=== PATIENT | male | born 1955 | race Caucasian/White ===

== ENCOUNTER → 2016-07-27 | Outpatient (CLI) | payer BC ==
[2016-07-27 15:29] LABS: Basophils % (A) 0 %; CH 29.6; CHCM 34.4; Eosinophils # (A) 0.1 k/uL (0-0.7); Eosinophils % (A) 1 %; HCT 43.2 % (39.0-53.0); HDW 3.18; HGB 13.8 gm/dL (13.0-17.5); Luc # (Auto) 0.14; Luc % (Auto) 2; Lymphocytes # (A) 0.8 k/uL (1.0-4.8); Lymphocytes % (A) 13 %; MCH 27.6 pg (25.0-35.0); MCV 86.4 fL (80.0-100.0); Mean Platelet Volume 6.9; Monocytes # (A) 0.4 k/uL (0-1.0); Monocytes % (A) 6 %; Neutrophils # (A) 4.8 k/uL (1.3-7.7); Neutrophils % (A) 77 %; RDW 15.3 % (11.5-15.5); WBC 6.1 k/uL (3.8-10.6); WBC (Perox) 6.14
[2016-07-27 15:39] LABS: ALT 51 U/L (21-72); AST 52 U/L (17-59); Alkaline Phosphatase 89 U/L (38-126); Anion Gap 12 mmol/L; Blood Urea Nitrogen 17 mg/dL (9-20); Calcium 9.3 mg/dL (8.4-10.2); Carbon Dioxide 27 mmol/L (22-30); Chloride 104 mmol/L (98-107); Creatine Kinase 212 U/L (55-170); Glucose 111 mg/dL (74-99); Magnesium 2.1 mg/dL (1.6-2.3); Non-African American GFR(MDRD) 59 (>60 ml/min/1.73 sqM); Potassium 4.7 mmol/L (3.5-5.1); Sodium 143 mmol/L (137-145); Total Bilirubin 0.6 mg/dL (0.2-1.3); Total Protein 6.9 g/dL (6.3-8.2)
--- NOTE | 2016-07-27 16:29 | XR ---
EXAMINATION TYPE: XR sinus DATE OF EXAM: 07/27/2016 3:10 PM COMPARISON: NONE HISTORY: 60-year-old male chronic sinusitis TECHNIQUE: 4 views FINDINGS: There is slight undulation of the nasal septum. Asymmetric increased density involving the right maxi llary frontal, and right ethmoid sinuses. Sphenoid sinuses appear pneumatized. No air-fluid level see n on the Smith view. IMPRESSION: Findings suggest asymmetric chronic sinus disease involving the right maxillary, frontal, and ethmoid sinuses.
== END ==
LOC: RADXRMAIN 14:37
PROVIDERS: ATTEND Internal Medicine
DX: J32.9 Chronic sinusitis, unspecified (principal); I10 Essential (primary) hypertension; I50.9 Heart failure, unspecified
CPT/HCPCS: 70220; 80053; 82550; 83735; 83880; 85025

== ENCOUNTER 2017-12-16 09:01 | Observation (INO) | payer BC ==
[2017-12-16] MEDS ORDERED: ACETAMINOPHEN TAB 325 MG TAB PO PRN (11:58)
[2017-12-16] MEDS ORDERED: NALOXONE 0.4 MG/ML 1 ML VIAL IV PRN (11:58)
[2017-12-16] MEDS ORDERED: MELATONIN 3 MG TABLET PO PRN (11:58)
[2017-12-16] MEDS ORDERED: ONDANSETRON 4 MG/2 ML VIAL IVP PRN (11:58)
[2017-12-16 12:14] LABS: HCT 40.8 % (39.0-53.0); HGB 13.9 gm/dL (13.0-17.5); MCH 28.6 pg (25.0-35.0); Mean Platelet Volume 7.8; Platelet Count 269 k/uL (150-450); RBC 4.86 m/uL (4.30-5.90); RDW 14.6 % (11.5-15.5)
[2017-12-16 12:45] LABS: Albumin 3.1 g/dL (3.5-5.0); Calcium 8.3 mg/dL (8.4-10.2); Magnesium 2.7 mg/dL (1.6-2.3); Phosphorus 4.3 mg/dL (2.5-4.5); Potassium 4.3 mmol/L (3.5-5.1); Total Bilirubin 0.4 mg/dL (0.2-1.3); Total Protein 5.4 g/dL (6.3-8.2)
[2017-12-16] MEDS ORDERED: SODIUM CHLORIDE 0.9% 1,000 ML IV ONE (14:35)
[2017-12-16] MEDS ORDERED: CALCIUM CARBONATE 500 MG CHEWABLE PO PRN (14:38)
[2017-12-16] MEDS ORDERED: HYDROcodone/APAP 5-325MG 1 EACH TAB PO PRN (14:38)
--- NOTE | 2017-12-16 15:28 | P.HPIM ---
History of Present Illness H&P Date: 12/16/17 Chief Complaint: Weakness Patient is a 62-year-old male to past medical history of hypertension , dyslipidemia, arthritis, GERD, A. fib, obstructive sleep apnea, and sinusitis who presented as a direct admission from Dr. Linn's office. Patient seen and examined at bedside. He states that 6 days ago he started having diarrhea. It increased in frequency over the next 3 days. It was associated with decreased appetite. Approximately 3 days ago he started having some vomiting. He then became lightheaded. He has felt some generalized weakness. After all the vomiting he felt as though his abdominal muscles were sore but no discrete abdominal pain. He also had one episode where he got so weak it is lower to his knees. 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 He denies any fevers or chills. He states that he was having food from the [employer] prior to this illness. He also states that 3 other members of his family came down with the illness but it only lasted 1 day. He was given Lomotil and Zofran by Dr. Linn and has not had a bowel movement since 6 PM last night. He denies any shortness of breath, wheezing, chest pain, palpitations, dysuria, or strokelike symptoms. He does have a history of congestive heart failure and last had an echocardiogram done approximately one year ago with Dr. Arias. Review of Systems Pertinent positives and negatives as discussed in HPI, a complete review of systems was performed and all other systems are negative. Past Medical History Past Medical History: Atrial Fibrillation, GERD/Reflux, Hyperlipidemia, Hypertension, Osteoarthritis (OA), Sleep Apnea/CPAP/BIPAP Additional Past Medical History / Comment(s): Chronic sinusitis, Vtach, FARZANEH but uses no device, arthritis. Congestive heart failure History of Any Multi-Drug Resistant Organisms: None Reported Past Surgical History: Hernia Repair, Orthopedic Surgery Additional Past Surgical History / Comment(s): R ESS with bx and removal of sinonasal mass, R inguinal hernia repair, achilles tendon repair left foot, abdominal surgery age 3 weeks old, colonoscopy in 2009-normal. Past Anesthesia/Blood Transfusion Reactions: No Reported Reaction Past Psychological History: No Psychological Hx Reported Additional Psychological History / Comment(s): Pt resides with his spouse of 40 yrs. He is independent. He has [facility] [place]. Smoking Status: Never smoker Past Alcohol Use History: None Reported Past Drug Use History: None Reported - Past Family History Father Family Medical History: Dementia, Hypertension, Osteoarthritis (OA) Additional Family Medical History / Comment(s): Father at the age of 87yrs. Mother Family Medical History: Cancer Additional Family Medical History / Comment(s): Mother said she had "lymphatic" cancer. She at the age of 78yrs. Medications and Allergies Home Medications Medication Instructions Recorded Confirmed Type Ferrous Sulfate [Feosol] 325 mg PO DAILY 04/23/15 12/16/17 History Indomethacin [Indocin] 50 mg PO TID 04/23/15 12/16/17 History Lansoprazole [Prevacid] 30 mg PO BID 04/23/15 12/16/17 History Finasteride [Propecia] 1 mg PO DAILY 04/24/15 12/16/17 History amLODIPine BESYLATE/BENAZEPRIL 1 cap PO DAILY 04/24/15 12/16/17 History [Lotrel 10-40 mg Capsule] Diphenox-Atrop 2.5-0.025 mg 1 tab PO QID PRN 12/16/17 12/16/17 History [Lomotil] Furosemide [Lasix] 20 mg PO DAILY 12/16/17 12/16/17 History Ondansetron HCl [Zofran] 4 mg PO QID PRN 12/16/17 12/16/17 History predniSONE See Taper PO DAILY 12/16/17 12/16/17 History Allergies Allergy/AdvReac Type Severity Reaction Status Date / Time ibuprofen Allergy Swelling-face Verified 12/16/17 11:26 and throat,hives Penicillins Allergy Unknown Verified 12/16/17 11:26 Childhood Physical Exam Osteopathic Statement: *. No significant issues noted on an osteopathic structural exam other than those noted in the History and Physical/Consult. Vitals: Vital Signs Temp Pulse Resp BP Pulse Ox 12/16/17 11:07 97.6 F 68 16 99/56 97 Intake and Output 12/15/17 12/16/17 12/16/17 22:59 06:59 14:59 Other: Weight 78.5 kg General: ill Appearing, mild distress, appears at stated age Derm: warm, dry Head: atraumatic, normocephalic, symmetric Eyes: EOMI, no lid lag, anicteric sclera Mouth: no lip lesion, mucous membranes dry Cardiovascular: S1 and S2 tachycardic, no murmur, positive posterior tibial pulse bilateral, Lungs: CTA bilateral, no rhonchi, no rales , no accessory muscle use Abdominal: soft, nontender to palpation, no guarding, no appreciable organomegaly Ext: no gross muscle atrophy, no edema, no contractures Neuro: CN II-XI grossly intact, no focal neuro deficits Psych: Alert, oriented, appropriate affect Results CBC & Chem 7: 12/16/17 12:01 12/16/17 12:01 Labs: Abnormal Lab Results - Last 24 Hours (Table) 12/16/17 Range/Units 12:01 BUN 58 H (9-20) mg/dL Creatinine 3.29 H (0.66-1.25) mg/dL Glucose 122 H (74-99) mg/dL Calcium 8.3 L (8.4-10.2) mg/dL Magnesium 2.7 H (1.6-2.3) mg/dL Total Protein 5.4 L (6.3-8.2) g/dL Albumin 3.1 L (3.5-5.0) g/dL Thrombosis Risk Factor Assmnt - DVT/VTE Prophylaxis DVT/VTE Prophylaxis: Low risk, early ambulation encouraged - Choose All That Apply Any of the Below Risk Factors Present?: Yes Each Risk Factor Represents 2 Points: Age 61-74 years Other congenital or acquired thrombophilia - If yes, enter type in comment: No Thrombosis Risk Factor Assessment Total Risk Factor Score: 2 Thrombosis Risk Factor Assessment Level: Low Risk Assessment and Plan Assessment: Gastroenteritis -Continue with Zofran and as needed Lomotil Acute kidney injury likely secondary to dehydration -IV fluids -Avoid nephrotoxic agents -Renal ultrasound -Repeat basic metabolic profile in a.m. -Hold home lisinopril, indomethacin, Lasix Hypertension, controlled -Lisinopril/amlodipine on hold, Lasix on hold -Follow blood pressures Compensated congestive heart failure Unknown baseline ejection fraction -Lasix and lisinopril on hold -Not chronically on beta jodie -Monitor fluid status closely Arthritis -Indomethacin on hold, patient nervous disease taken it since age of 20 -Supplement with prednisone and [place] Chronic: Paroxysmal atrial fibrillation currently in normal sinus rhythm GERD Sinusitis Obstructive sleep apnea not chronically on medications Dyslipidemia The patient is placed in observation with an anticipated less than 2 per night stay for evaluation of acute kidney injury and gastroenteritis. Surrogate decision-maker: , pat CODE STATUS: Full DVT prophylaxis: Low risk Discussed with: Yecenia Garces CREDIT MANAGER, patient, , nurse Anticipated discharge date: in AM Anticipated discharge place: Home A total of 35 minutes was spent on the care of this complex patient more than 50 % of the time was spent in counseling and care coordination.
--- NOTE | 2017-12-16 15:39 | US ---
EXAMINATION TYPE: US renals and bladder DATE OF EXAM: 12/16/2017 COMPARISON: NONE CLINICAL HISTORY: JIM. EXAM MEASUREMENTS: Right Kidney: 9.9 x 4.0 x 5.0 cm Left Kidney: 10.5 x 5.1 x 4.3 cm Right Kidney: No hydronephrosis or masses seen. No nephrolithiasis. Prominent column of [place] is inc identally noted. Cortical medullary differentiation is maintained. Left Kidney: No hydronephrosis or masses seen. No nephrolithiasis. Cortical medullary differentiation is maintained. Bladder: not fully distended There is no evidence for hydronephrosis at this point in time. No nephrolithiasis is seen. No nahid s are identified. The urinary bladder is anechoic. Bilateral ureteral jets are seen. IMPRESSION: No hydronephrosis or nephrolithiasis. No sonographic sequela of medical renal disease.
[2017-12-16] MEDS: SODIUM CHLORIDE 0.9% 1,000 ML IV SCH (15:53)
[2017-12-16] MEDS ORDERED: NON-FORMULARY DRUG (Lansoprazole [Prevacid] 30 MG) PO SCH (21:00)
[2017-12-16] MEDS: DIPHENOX-ATROP 2.5-0.025 MG 1 EACH TAB PO PRN (23:08)
[2017-12-17] MEDS: SODIUM CHLORIDE 0.9% 1,000 ML IV SCH ×2 (02:00→07:25)
[2017-12-17] MEDS: DIPHENOX-ATROP 2.5-0.025 MG 1 EACH TAB PO PRN (04:10)
[2017-12-17 06:48] VITALS: BP 106/62; PULSE 76; RESP 18; TEMP 98
[2017-12-17 07:20] LABS: Calcium 8.1 mg/dL (8.4-10.2); Potassium 4.2 mmol/L (3.5-5.1)
[2017-12-17] MEDS ORDERED: PANTOPRAZOLE 40 MG TABLET PO SCH (07:30)
[2017-12-17] MEDS ORDERED: FINASTERIDE 1 MG PO SCH (09:00)
[2017-12-17] MEDS ORDERED: predniSONE 20 MG TAB PO SCH (09:00)
[2017-12-17] MEDS ORDERED: FERROUS SULFATE 325 MG TAB PO SCH (09:00)
--- NOTE | 2017-12-17 15:44 | P.DS ---
Providers Date of admission: 12/16/17 10:55 Expected date of discharge: 12/17/17 Attending physician: Lisy Hebert DO Primary care physician: Manuel Linn Hospital Course: Discharge Diagnosis: Gastroenteritis Acute kidney injury, due to dehydration Compensated diastolic congestive heart failure Arthritis Paroxysmal atrial fibrillation Obstructive sleep apnea not currently on CPAP Hospital Course: Patient is a 62-year-old male to past medical history of hypertension , dyslipidemia, arthritis, GERD, A. fib, obstructive sleep apnea, and sinusitis who presented as a direct admission from Dr. Linn's office. He was found to have gastroenteritis that was likely secondary to food borne illnesses as 3 family members had milder cases and it occurred after eating a fair food. He was also found to have acute kidney injury. He is admitted for IV fluid resuscitation. He had already been started on Lomotil and his diarrhea had slowed. His lisinopril, Indocin, and Lasix were held. He was given 1 L IV fluid bolus and started on IV fluids at 100's per hour. By the next morning he had a rapid improvement in his kidney function and his creatinine was down to 1.81. He was determined stable for discharge home. He was instructed to return should his diarrhea worsened, he has increased fever, or no blood in his stools. There did not appear to be an indication for antibiotic at this point in time with a normal white blood cell count, and no fevers, no blood in his stool. He was given written and verbal instructions to resume his Lotrel and , Lasix on 12/20, and Indocin on 12/22. In order to compensate for his arthritis pain he was given a short dose of steroids. He was also given a prescription for Canby. I have asked him to get a repeat visit metabolic profile on Tuesday or Tuesday of next week with results to the Dr. Linn. Patient seen and examined at bedside. Only 3 episodes of diarrhea overnight. Feeling well and weakness is resolved. Up and ambulating the halls. No shortness of breath. No chest pain. Vital signs reviewed and stable. General: non toxic, no distress, appears at stated age Derm: warm, dry Head: atraumatic, normocephalic, symmetric Eyes: EOMI, no lid lag, anicteric sclera Mouth: no lip lesion, mucus membranes moist Cardiovascular: S1S2 reg, no murmur, positive posterior tibial pulse bilateral, Lungs: CTA bilateral, no rhonchi, no rales , no accessory muscle use Abdominal: soft, nontender to palpation, no guarding, no appreciable organomegaly Ext: no gross muscle atrophy, no edema, no contractures Neuro: CN II-XI grossly intact, no focal neuro deficits Psych: Alert, oriented, appropriate affect A total of 20 minutes of time were spent preparing this complex discharge summary . On discharge, the patient has been prescribed Canby for the treatment of acute pain. They have been provided a by day supply and MAPS was checked on 12/17/17. I have counseled them on the risk of opiate medications including addiction and overdose. We also discussed that mixing opiate medications with benzodiazepines , alcohol, muscle relaxers, and other drugs that depress the central nervous system can lead to serious health risks including overdose, , and disability. I informed them that it is a felony to illegally deliver, sell, or share a controlled substance. I have instructed them that unused opiates can be disposed of at a drug takeback location, which includes the [facility] and the [facility]. The Opioid start talking form has been signed. I have referred them back to their primary care physician for follow-up care. Patient Condition at Discharge: Stable Plan - Discharge Summary Discharge Rx Participant: No New Discharge Prescriptions: New HYDROcodone/APAP 5-325MG [Canby 5-325] 1 each PO Q6HR PRN #20 tab PRN Reason: Pain predniSONE 20 mg PO DAILY #5 tab Continue Ferrous Sulfate [Iron (65 MG Elemental)] 325 mg PO DAILY Indomethacin [Indocin] 50 mg PO TID Lansoprazole [Prevacid] 30 mg PO BID amLODIPine BESYLATE/BENAZEPRIL [Lotrel 10-40 mg Capsule] 1 cap PO DAILY Finasteride [Propecia] 1 mg PO DAILY Ondansetron HCl [Zofran] 4 mg PO QID PRN PRN Reason: Nausea Diphenox-Atrop 2.5-0.025 mg [Lomotil] 1 tab PO QID PRN PRN Reason: Diarrhea Furosemide [Lasix] 20 mg PO DAILY Discontinued predniSONE See Taper PO DAILY Discharge Medication List Ferrous Sulfate [Iron (65 MG Elemental)] 325 mg PO DAILY 04/23/15 [History] Indomethacin [Indocin] 50 mg PO TID 04/23/15 [History] Lansoprazole [Prevacid] 30 mg PO BID 04/23/15 [History] Finasteride [Propecia] 1 mg PO DAILY 04/24/15 [History] amLODIPine BESYLATE/BENAZEPRIL [Lotrel 10-40 mg Capsule] 1 cap PO DAILY [History] Diphenox-Atrop 2.5-0.025 mg [Lomotil] 1 tab PO QID PRN 12/16/17 [History] Furosemide [Lasix] 20 mg PO DAILY 12/16/17 [History] Ondansetron HCl [Zofran] 4 mg PO QID PRN 12/16/17 [History] HYDROcodone/APAP 5-325MG [Canby 5-325] 1 each PO Q6HR PRN #20 tab 12/17/17 [Rx] predniSONE 20 mg PO DAILY #5 tab 12/17/17 [Rx] Follow up Appointment(s)/Referral(s): Manuel Linn MD [Primary Care Provider] - 1-2 Days (Patient to call and schedule follow-up appointment on Tuesday, office is currently closed) Ambulatory/Diagnostic Orders: Basic Metabolic Panel [LAB.AMB] Location: None Selected Patient Instructions/Handouts: Hydrocodone/Acetaminophen (By mouth), Prednisone (By mouth), Probiotic (By mouth), Dehydration (DC), Acute Nausea and Vomiting (DC), Acute Diarrhea (GEN) Activity/Diet/Wound Care/Special Instructions: Heart healthy diet Activity as tolerated Take over the counter probiotic (Lactobacillus) twice daily for 7 days Resume Lotrel on 12/19 Resume lasix on 12/20 Resume Indocin on 12/22 Seek medical care if diarrhea worsens Discharge Disposition: HOME SELF-CARE
== END 2017-12-17 10:05 | disposition home or self-care (01) ==
LOC: INTOOBSV 10:55 → 5MS5E 10:55
PROVIDERS: ADMIT Internal Medicine; ATTEND Internal Medicine
DX: K52.9 Noninfective gastroenteritis and colitis, unspecified (principal); N17.9 Acute kidney failure, unspecified; E86.0 Dehydration; I11.0 Hypertensive heart disease with heart failure; I50.32 Chronic diastolic (congestive) heart failure; M19.90 Unspecified osteoarthritis, unspecified site; J32.9 Chronic sinusitis, unspecified; K21.9 Gastro-esophageal reflux disease without esophagitis; I48.0 Paroxysmal atrial fibrillation; I47.2 Ventricular tachycardia; G47.33 Obstructive sleep apnea (adult) (pediatric); E78.5 Hyperlipidemia, unspecified; Z99.89 Dependence on other enabling machines and devices; F40.240 Claustrophobia; Z79.1 Long term (current) use of non-steroidal anti-inflammatories (NSAID); Z79.52 Long term (current) use of systemic steroids; Z79.899 Other long term (current) drug therapy; Z88.0 Allergy status to penicillin; Z88.6 Allergy status to analgesic agent; Z80.7 Family history of other malignant neoplasms of lymphoid, hematopoietic and related tissues; Z82.49 Family history of ischemic heart disease and other diseases of the circulatory system; Z81.8 Family history of other mental and behavioral disorders; Z82.61 Family history of arthritis
CPT/HCPCS: 80053; 80048; 83735; 84100; 85027; 87086; 87077; 87186; 76770; G0379; G0378 ×3; J7512

== ENCOUNTER → 2020-11-28 | Outpatient (CLI) | payer BC ==
--- NOTE | 2020-11-28 12:52 | XR ---
EXAMINATION TYPE: XR chest 2V DATE OF EXAM: 11/28/2020 COMPARISON: NONE HISTORY: Chest pain TECHNIQUE: Frontal and lateral views of the chest are obtained. FINDINGS: There is no focal air space opacity, pleural effusion, or pneumothorax seen. The cardiac silhouette size is within normal limits. The osseous structures are intact. IMPRESSION: No acute cardiopulmonary process.
--- NOTE | 2020-12-01 08:43 | EST ---
EXERCISE STRESS AGE: 65 SEX: M HT: 6'3" WT: 200 lbs. PROTOCOL: Chris STAGE: 3 DURATION OF EXERCISE: 9:00 HEART RATE REST: 85 BLOOD PRESSURE REST: 146/73 MAXIMUM HEART RATE ACHIEVED: 127 MAXIMUM BLOOD PRESSURE: 193/73 85% MPHR: 133 100% MPHR: 156 METS: 10.5 INDICATIONS: Chest pain CLINICAL INFORMATION: Baseline EKG shows sinus rhythm with left bundle branch block. The patient exercised on Chris protocol for a total of 8.5 minutes, achieving 9.5 METS, 79% of predicted maximal heart rate without chest pain or diagnostic ST-segment depression. CONCLUSIONS: 1. Good exercise tolerance. 2. Inconclusive EKG part of the stress test due to left bundle branch block inability to obtain target heart rate. 3. Cardiolite portion of the stress test will be reported separately. MMODL / IJN: [id number] /
--- NOTE | 2020-12-01 10:52 | NM ---
EXAMINATION TYPE: NM stress cardiolite complete DATE OF EXAM: 11/30/2020 COMPARISON: NONE HISTORY: 65-year-old male with chest pain TECHNIQUE: After the intravenous administration of 9.7 mCi Tc 99m Sestamibi - Rest images obtained 4 5 minutes post injection. The patient exercised using a SO protocol and 1 minute prior to peak e xercise was injected with 25.8 mCi Tc 99m Sestamibi - Stress images obtained 25 minutes post injectio n. FINDINGS: Targeted heart rate (133 bpm). Maximum heart rate of 127 bpm was achieved. Review of stress and rest SPECT images demonstrates apical reversibility. Some additional reversibility noted along the septal wall. Findings are corroborated on the polar maps. Fixed decreased perfusion along the inferior wall likely diaphragmatic attenuation artifact. Gated analysis shows some generalized hypokinesis and lack of augmentation of the apex. Estimated lef t ventricular ejection fraction of 48 %. TID calculated 0.83, within normal limits. IMPRESSION: 1. Despite the patient's target heart rate not being achieved, there is apical reversibility suggesti ve of inducible ischemia. Some reversibility is also seen along the septal wall. Further evaluation i s recommended. 2. Mildly decreased LVEF of 48%.
== END | disposition home or self-care (01) ==
LOC: RADNMMAIN 08:24
PROVIDERS: ATTEND Internal Medicine
DX: R07.9 Chest pain, unspecified (principal)
CPT/HCPCS: 93017; 71046; 78452; A9500

== ENCOUNTER 2021-01-30 06:39 | Day surgery (SDC) | payer BC ==
[2021-01-28 14:50] VITALS: BMI 25.0
[~2021-01-30 06:39] MED LIST: ALPRAZolam 0.25 MG TAB PO PRN; ALPRAZolam 0.5 MG TAB PO PRN; ASPIRIN 325 MG TAB PO STA; ATORVASTATIN 80 MG TAB PO STA; NITROGLYCERIN SL TABS 0.4 MG TAB SUBLINGUAL PRN; SODIUM CHLORIDE 0.9% 1,000 ML in EMPTY BAG 1 BAG IV ONE
[2021-01-30] MEDS ORDERED: SODIUM CHLORIDE 0.9% 1,000 ML IV ONE (07:00)
[2021-01-30 07:08] VITALS: RESP 16; TEMP 98.2
[2021-01-30 07:22] LABS: Basophils # (A) 0.1 k/uL (0-0.2); Basophils % (A) 1 %; Eosinophils # (A) 0.1 k/uL (0-0.7); Eosinophils % (A) 2 %; HGB 15.1 gm/dL (13.0-17.5); Lymphocytes # (A) 0.7 k/uL (1.0-4.8); Lymphocytes % (A) 11 %; MCH 28.8 pg (25.0-35.0); MCHC 33.7 g/dL (31.0-37.0); MCV 85.5 fL (80.0-100.0); Mean Platelet Volume 7.5; Monocytes # (A) 0.4 k/uL (0-1.0); Monocytes % (A) 6 %; Neutrophils # (A) 5.1 k/uL (1.3-7.7); Neutrophils % (A) 79 %; Platelet Count 231 k/uL (150-450); RBC 5.27 m/uL (4.30-5.90); RDW 13.3 % (11.5-15.5); WBC 6.4 k/uL (3.8-10.6)
[2021-01-30 07:49] LABS: Calcium 9.6 mg/dL (8.4-10.2); Potassium 4.4 mmol/L (3.5-5.1)
[2021-01-30] MEDS ORDERED: MIDAZOLAM 2 MG/2 ML VIAL IV ONE (07:49)
[2021-01-30] MEDS ORDERED: LIDOCAINE 1% INJ 10MG/ML (20 ML MDV) SQ ONE (07:57)
[2021-01-30] MEDS ORDERED: VERAPAMIL SYRINGE (5 MG/10 ML) INTRAARTER ONE (07:57)
[2021-01-30] MEDS: VERAPAMIL SYRINGE (5 MG/10 ML) INTRAARTER ONE ×2 (07:59→08:07)
[2021-01-30] MEDS ORDERED: IOPAMIDOL-370 125ML BTL INJ ONE (08:07)
[2021-01-30] MEDS ORDERED: RX INFO: IV CONTRAST WAS GIVEN 1 EACH MISC MISCELLANE PRN (08:12)
[2021-01-30] MEDS ORDERED: SODIUM CHLORIDE 0.9% 1,000 ML IV SCH (08:15)
--- NOTE | 2021-01-30 09:31 | CC ---
CARDIAC CATHETERIZATION REPORT DATE OF PROCEDURE: 01/30/2021 PERFORMING PHYSICIAN: Ethan Steve M.D. PROCEDURE PERFORMED: 1. Selective right and left coronary angiogram. 2. Left heart catheterization. INDICATION: Chest discomfort in this 65-year-old gentleman with hypertension and dyslipidemia and smoking and significant family history of CAD. He underwent a myocardial perfusion imaging stress test that was abnormal, showing reversibility and also abnormal ejection fraction. In light of that, heart catheterization was advised. APPROACH: Right radial artery. COMPLICATIONS: None. LEVEL OF SEDATION: Moderate, with sedation length of 12 minutes. PROCEDURE DESCRIPTION: After obtaining informed consent, the patient was brought to the cardiac wood preserving plant laborer. The right radial artery was cannulated using micropuncture technique. The micropuncture wire passed easily. Then I placed a 6-Bengali sheath at the right radial artery. Selective right and left coronary angiogram was performed using JR4 and JL3.5 catheters. Left heart catheterization was performed using the JR4 catheter. Please note that the patient was given a total of 6000 units of heparin IV. The procedure was completed without any complication. SELECTIVE CORONARY ANGIOGRAM: 1. The RCA is a large-caliber vessel. Is a dominant vessel. It is angiographically normal. It bifurcates into PDA and PLV branches distally, and they appeared to be angiographically normal. 2. The left main is angiographically normal. It bifurcates into left circumflex and left anterior descending artery and ramus intermedius coronary artery. 3. The left circumflex is a large-caliber vessel. The left circumflex is angiographically normal. It gives rise to a large OM branch which appeared to be angiographically normal. 4. The ramus intermedius is a large-caliber vessel. The ramus intermedius is angiographically normal as well. 5. The LAD is a large-caliber vessel. The LAD is angiographically normal. It gives rise to the first and second diagonal branches. Both appeared to be angiographically. 6. HEMODYNAMICS: The LVEDP was 12 mmHg without significant gradient across the aortic valve. CONCLUSION: 1. Normal coronary angiogram. 2. Normal LVEDP. POSTPROCEDURE MANAGEMENT: Medical treatment and follow up with the patient. MMODL / IJN: [id number] /
--- NOTE | 2021-01-30 09:40 | LTR ---
January 30, 2021 To: Dr. Sae Díaz Re: Aakash Belcher (57) Dear Dr. Díaz, Mr. Aakash Belcher underwent heart catheterization and that revealed normal coronaries. I want to thank you for allowing me to participate in this patient's care. Please do not hesitate to call with any questions or concerns. Sincerely, Ethan Steve M.D. VAMSI / ORIANA: [id number] /
[2021-01-30 12:41] VITALS: BP 129/75; PULSE 55
== END 2021-01-30 12:43 | disposition home or self-care (01) ==
LOC: CATHCVL 06:39
PROVIDERS: ATTEND Internal Medicine Interventional Cardiology
DX: R07.89 Other chest pain (principal); I10 Essential (primary) hypertension; E78.5 Hyperlipidemia, unspecified; F17.200 Nicotine dependence, unspecified, uncomplicated; Z82.49 Family history of ischemic heart disease and other diseases of the circulatory system
CPT/HCPCS: 93458; 80048; 85025; 87635; J2250; J2001; J1644; Q9967